=== PATIENT | female | born 1950 | race Caucasian/White ===

== ENCOUNTER → 2020-11-26 | Outpatient (CLI) | payer BC, MEDICARE ==
[~2020-11-26] MED LIST: ANAS1TAB2 PO; CALC600T61 PO; METO1TAB33 PO; NAPR220C14 PO; OCUV1CHW PO; OSTE1TAB2 PO; SIMV40TA20 PO; VALS320T3 PO; VITMTA PO
--- NOTE | 2020-11-26 11:26 | RADONC.CN ---
Radiation Oncology Hx/Consult Radiation Oncology Consult Date of Service: November 26, 2020 Pt Identifier Lolita Brito is a 70 year old female with screening mammogram detected left breast cancer pT1cN0(sn)M0 ER/MT+ HER2- Grade 2. She is s/p lumpectomy and SLNB with Dr. Foster on 10/15/20. She is seen for consideration of adjuvant RT. Diagnosis/Treatment History Oncologic History 05/07/20 Mammogram with left upper outer breast lesion 1.9 cm in extent 06/19/20 Biopsy showing IDC @ 10:00 ER/MT+ HER2- Grade [address] Foster in June, was started on AI as [place] the [place] Lumpectomy ([facility]) pT1cN0(sn)M0 margins negative, posterior margin close (0.6 mm) Breast history: 1st @ 18 Menses @ 16 Menopause @ 55 No HRT No OCP No IVF Interval History Here with her supportive . Has no complaints related to her breasts today. No post-surgical pain or tenderness. No swelling or ROM impairment in the left arm. Appetite good and weight stable. States genetic testing is pending. Has hot flashes from AI, no other endocrine therapy related complaints. Past Medical History: Arthritis HPL HTN Past Surgical History: As above Tubal ligation 1985 Family History: Father liver cancer Mother breast cancer Social History: 10 pack year former smoker quit ~1997 Drinks 1-2 drinks 1-2 days weekly Allergies / Meds Home Meds Reported Medications Multivitamins (Thera M Plus Tablet) 1 Each Tablet, 1 TAB PO QAM for 30 Days, #30 TAB 11/26/20 Calcium Carbonate (Calcium) 600 Mg Tablet, 1 TAB PO DAILY for 30 Days, #30 TAB 11/26/20 Vit D3-Vit K/Berberine/Hops (Ostera Tablet) 1 Each Tablet, 1 TAB PO, TAB 11/26/20 Vit C/E/Zinc/Lutein/Zeaxanthin ([employer] [facility] Gummies) 1 Each Tab.chew, 1 TAB PO DAILY for 30 Days, #30 TAB 11/26/20 Naproxen Sodium (Aleve) 220 Mg Capsule, 220 MG PO, CAP 11/26/20 Anastrozole (Anastrozole) 1 Mg Tablet, 1 MG PO, TAB 11/26/20 Simvastatin (Simvastatin) 40 Mg Tablet, 40 MG PO QPM for 30 Days, #30 TAB 11/26/20 Valsartan/Hydrochlorothiazide (Valsartan-Hctz 320-25 mg Tab) 1 Each Tablet, 1 TAB PO DAILY for 30 Days, #30 TAB 11/26/20 Metoprolol Succinate (Metoprolol Succinate) 100 Mg Tab.er.24h, 100 MG PO DAILY for 30 Days, #30 TAB 11/26/20 Review of Systems General: Reports: Normal Appetite Constitutional: Denies: Chills, Fever, Night Sweats Eyes: Denies: Pain, Vision change HEENT: Denies: Head Aches, Dysphagia, Sore Throat Skin: Denies: Rash, Lesions, Bruising Pulmonary: Denies: Dyspnea, Cough Cardiovascular: Denies: Chest Pain, Palpitations, Edema Gastrointestinal: Denies: Nausea, Vomiting, Abdominal Pain, Diarrhea Genitourinary: Denies: Dysuria, Frequency, Incontinence Hematologic: Denies: Bruising, Petecchia, Enlarged Lymph Nodes Musculoskeletal: Denies: Neck pain, Back pain Neurological: Denies: Weakness, Numbness, Incoordination Psych: Reports: Mood Normal; Denies: Memory Issues, Thoughts of Self Harm General Exam: Positive: Alert, Cooperative, No Acute Distress Eye Exam: Positive: PERRLA, EOMI ENT EXAM: Positive: Mucous membr. moist/pink, Pharynx Normal Neck Exam: Negative: Thyromegaly, Lymphadenopathy Chest Exam: Positive: Normal air movement; Negative: Rales, Rhonchi, Wheezing Heart Exam: Positive: Rate Normal, Regular Rhythm Breast Exam: Positive: Symmetric Bilaterally (Ptotic); Negative: Lumps or Masses, Nipple Retraction, Nipple Discharge, Skin Changes (Well healed supra-areolar inceision left breast. ), Other Breast Findings (No palpable adenopathy in the axillae) Abdomen Exam: Positive: Soft; Negative: Tenderness, Mass Extremity Exam: Negative: Edema, Tenderness Skin Exam: Positive: Nl turgor and temperature; Negative: Rash Neuro Exam: Positive: Normal Gait, Normal Speech, Cranial Nerves 3-12 NL Psych Exam: Positive: Mental status NL, Mood NL Diagnostic and Laboratory Diagnostic Review Radiologic images, relevant labs and pathology reports were personally reviewed and discussed with Andradeelfroilan. Assessment and Plan Impression Ms. Brito is a 70 year old female with a history of screening mammogram detected left breast cancer pT1cN0(sn)M0 ER/MT+ HER2- Grade 2. She is s/p lumpectomy and SLNB with Dr. Foster on 10/15/20. She is seen for consideration of adjuvant RT. 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 Brito regarding the diagnosis at hand and available therapeutic options. She had an early stage lesion completely excised albeit with a single close but negative postero-inferior margin. We discussed that she has several viable options for adjuvant therapy. She is tolerating her AI well, thus one could extrapolate CALGB 9343 inclusion criteria to her case, and she may safely omit RT. Alternatively she would be appropriate for WBI with a hypofractionated schedule +/- boost, or partial breast RT (cautionary per ROCKY APBI based only on the close margin status... this is a minor concern). I explained the pros and cons of each of these options to her and her . They would like to pursue RT for the local control benefit. I think she would be most appropriate for APBI with the FAST FORWARD regimen of 26 Gy in 5 fractions. I would use VMAT to spare heart and lung dose most effectively as this is a left sided cancer and she is otherwise very healthy. I think this course constitutes a happy medium for her case, where omission of RT and WBI both seem like extremes. We reviewed the data in support of this regimen (versus the IMPORT LOW sche dule), as well as the expected toxicities fatigue, skin reaction and late fibrosis. 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 She expressed that cosmesis is not a big concern for her. She likes the shortened treatment time with this regimen. We discussed the logistics of receiving radiation therapy in detail including the need for a 1-time planning session. This can occur next week. After discussing the risks, benefits and alternatives to radiation therapy, Ms. Brito was amenable to pursuing radiotherapy. All questions were answered to the patient's satisfaction. We instructed the patient that if there were any questions,concerns or changes in clinical status in the interim to contact us. Recommendations APBI 26 Gy in 5 fractions with VMAT per FAST FORWARD Simulation in the coming week Billing Statement Total time of [49] minutes was spent preparing for the visit [3], obtaining HPI [10], examining the patient [3], reviewing diagnostic tests [3], discussing management options [18], coordinating care [2], and writing this note [12]. ISELA WYATT MD November 26, 2020 11:26
== END ==
LOC: M ONCR 09:51
PROVIDERS: ATTEND General Practice
DX: C50.412 Malignant neoplasm of upper-outer quadrant of left female breast (principal)

== ENCOUNTER 2020-12-20 14:17 | Outpatient (RCR) | payer MEDICARE | END 2021-01-01 | LOC: M ONCR 14:17 | PROVIDERS: ATTEND General Practice | DX: C50.412 Malignant neoplasm of upper-outer quadrant of left female breast (principal) ==

== ENCOUNTER → 2021-06-18 | Outpatient (CLI) | payer MEDICARE ==
--- NOTE | 2021-06-18 14:00 | RADONC ---
Radiation Oncology Hx/FUP Radiation Oncology Hx/FUP Date of Service: Jun 18, 2021 Pt Identifier Lolita Brito is a 71 year old female seen for a followup visit today at the department of radiation oncology for a history of screening mammogram detected left breast cancer pT1cN0(sn)M0 ER/AK+ HER2- Grade 2. She is s/p lumpectomy and SLNB with Dr. Foster on 10/15/20. She received adjuvant APBI 26 Gy in 5 fraction completed 12/16/20-12/20/20. Diagnosis/Treatment History Oncologic History 05/07/20 Mammogram with left upper outer breast lesion 1.9 cm in extent 06/19/20 Biopsy showing IDC @ 10:00 ER/AK+ HER2- Grade [address] Foster in June, was started on AI as patient was [place]15/20 Lumpectomy ([facility]) pT1cN0(sn)M0 margins negative, posterior margin close (0.6 mm) 12/16/20-12/20/20 APBI 26 Gy in 5 fractions with VMAT Survivorship: Test Due Next Last result Notes TSH, T4* 6m post-tx, then q1y N/A Carotid US* q10 y post-tx N/A Smoking cessation Assess annually if applicable N/A Screening CT chest q1y if eligible per USPSTF N/A Mammograms Min q1y, if breast conservation October 2021 CBC,CMP, Lipids q1y October 2021 DEXA q2y if on AI Per medical oncology *If supraclavicular field treated Interval History Continues on AI, no complaints. Has mammograms scheduled for October 2021 upon re turn from [place] for Winter. She has no breast complaints. Notes she had minimal skin reaction after treatment, no palpable changes in left breast. Appetite and weight stable. 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 Social History: 10 pack year former smoker quit ~1997 Drinks 1-2 drinks 1-2 days weekly Allergies / Meds Home Meds Reported Medications Multivitamins (Thera M Plus Tablet) 1 Each Tablet, 1 TAB PO QAM for 30 Days, #30 TAB 11/26/20 Calcium Carbonate (Calcium) 600 Mg Tablet, 1 TAB PO DAILY for 30 Days, #30 TAB 11/26/20 Vit D3-Vit K/Berberine/Hops (Ostera Tablet) 1 Each Tablet, 1 TAB PO, TAB 11/26/20 Vit C/E/Zinc/Lutein/Zeaxanthin ([facility] Gummies) 1 Each Tab.chew, 1 TAB PO DAILY for 30 Days, #30 TAB 11/26/20 Naproxen Sodium (Aleve) 220 Mg Capsule, 220 MG PO, CAP 11/26/20 Anastrozole (Anastrozole) 1 Mg Tablet, 1 MG PO, TAB 11/26/20 Simvastatin (Simvastatin) 40 Mg Tablet, 40 MG PO QPM for 30 Days, #30 TAB 11/26/20 Valsartan/Hydrochlorothiazide (Valsartan-Hctz 320-25 mg Tab) 1 Each Tablet, 1 TAB PO DAILY for 30 Days, #30 TAB 11/26/20 Metoprolol Succinate (Metoprolol Succinate) 100 Mg Tab.er.24h, 100 MG PO DAILY for 30 Days, #30 TAB 11/26/20 Review of Systems Review of Systems Constitutional: Reports: Normal appetite; Denies: Fatigue, Weight Loss Eyes: Denies: Pain HEENT: Denies: Head Aches Breast: Denies: New Breast Lumps / Masses, Nipple Retraction, Nipple Discharge, Breast Skin Changes, Breast Pain or Tenderness Pulmonary: Denies: Dyspnea Cardiovascular: Denies: Chest Pain Gastrointestinal: Denies: Abdominal Pain Musculoskeletal: Denies: Neck pain, Arm pain, Back pain Neurological: Denies: Weakness, Numbness Psych: Reports: Mood Normal Physical Examination Vital Signs Wt 260.4 lbs T 96.6 P 61 RR 18 BP 150/89 O2 97% Pain 0 Fatigue 0 General Exam: Alert, Cooperative, No Acute Distress Eye Exam: PERRLA, EOMI ENT EXAM: Atraumatic Neck Exam: Supple Chest Exam: Clear to auscultation Heart Exam: Rate Normal, Regular Rhythm Breast Exam: Symmetric Bilaterally; Negative: Lumps or Masses (No palpable fibrosis or lesions BL breast and axillae), Nipple Retraction, Nipple Discharge, Skin Changes Abdomen Exam: Soft Extremity Exam: Negative: Edema Skin Exam: Nl turgor and temperature Neuro Exam: Normal Gait, Normal Speech, Cranial Nerves 3-12 NL Psych Exam: Mental status NL Diagnostic and Laboratory Diagnostic Review Radiologic images, relevant labs and pathology reports were personally reviewed and discussed with Ms. Brito. Assessment and Plan Impression Assessment Ms. Brito is a 71 year old female with a history of screening mammogram detected left breast cancer pT1cN0(sn)M0 ER/AK+ HER2- Grade 2. She is s/p lumpectomy and SLNB with Dr. Foster on 10/15/20. She received adjuvant APBI 26 Gy in 5 fraction completed 12/16/20-12/20/20. She is well overall. No evidence of recurrence on exam or late sequelae of treatment. She continues on AI. She has mammograms upcoming in October 2021. I will see her again in 6 months, then if all is well I will continue to follow her q1y. Will be in [facility] for the Winter, to return end October 2021. Performance Status ECOG 0 Plan Follow up in 6 months Ms. Brito was encouraged to call with questions or concerns in the interim period. Billing Statement Total time of [22] minutes was spent preparing for the visit [1], obtaining HPI [4], examining the patient [4], reviewing diagnostic tests [1], discussing management options [5], coordinating care [1], and writing this note [6]. ISELA WYATT MD Jun 18, 2021 14:00
== END ==
LOC: M ONCR 13:19
PROVIDERS: ATTEND General Practice
DX: C50.412 Malignant neoplasm of upper-outer quadrant of left female breast (principal); Z92.3 Personal history of irradiation; Z79.899 Other long term (current) drug therapy

== ENCOUNTER → 2021-12-24 | Outpatient (CLI) | payer MEDICARE | LOC: M ONCR 12:50 | PROVIDERS: ATTEND General Practice | DX: Z08 Encounter for follow-up examination after completed treatment for malignant neoplasm (principal); C50.412 Malignant neoplasm of upper-outer quadrant of left female breast; Z79.811 Long term (current) use of aromatase inhibitors; Z79.899 Other long term (current) drug therapy; Z87.891 Personal history of nicotine dependence; Z92.3 Personal history of irradiation ==

== ENCOUNTER → 2022-12-24 | Outpatient (CLI) | payer MEDICARE | LOC: M ONCR 12:50 | PROVIDERS: ATTEND General Practice | DX: C50.412 Malignant neoplasm of upper-outer quadrant of left female breast (principal); Z71.2 Person consulting for explanation of examination or test findings; Z79.1 Long term (current) use of non-steroidal anti-inflammatories (NSAID); Z79.899 Other long term (current) drug therapy; Z87.891 Personal history of nicotine dependence; Z92.3 Personal history of irradiation; Z98.890 Other specified postprocedural states ==